=== PATIENT | female | born 2000 | race Caucasian/White ===

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

== ENCOUNTER 2020-09-24 22:04 | Inpatient (IN) | payer MEDICAID ==
--- NOTE | 2020-09-24 22:54 | PCM.LDHP ---
L&D History of Present Illness - General Date of Service: 09/24/20 Admit Problem/Dx: Admission Diagnosis/Problem Admission Diagnosis/Problem 09/24/20 22:48 Jenny is a 19 yo at 39+6 weeks gestation (KERLINE(LMP) 09/25/2020) that presents today with C/O contractions today ~ q 6-10 min, moderate, getting increasingly difficult to manage. AB pos, Ab screen neg, RNI, GBS pos. NKDA, plan for ampicillin prophylaxis in labor. Reports ample movement. Denies C/O vaginal bleeding, LOF, or any other problems or concerns at this time. Pertinent hx includes: depression, anxiety, low back pain, early SAB (09/2019). Source of Information: Patient History Limitations: Reports: No Limitations - History of Present Illness Improves with: Reports: None Worsens with: Reports: None Associated Symptoms: Reports: N - Related Data Allergies/Adverse Reactions: Allergies Allergy/AdvReac Type Severity Reaction Status Date / Time No Known Allergies Allergy Verified 09/24/20 12:22 Home Medications: Home Meds Nitrofurantoin Monohyd/M-Cryst [Macrobid 100 mg Capsule] 100 mg PO BID 7 Days #14 capsule 01/08/19 [Rx] Sertraline [Zoloft] 1 tab PO DAILY 09/24/20 [History] Past Medical History HEENT History: Reports: None Cardiovascular History: Reports: None Respiratory History: Reports: None Gastrointestinal History: Reports: None Genitourinary History: Reports: Renal Calculus 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: , 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 : 2 Para: 0 LMP (Approximate): Musculoskeletal History: Reports: None Neurological History: Reports: None Psychiatric History: Reports: Anxiety, Depression Endocrine/Metabolic History: Reports: None Hematologic History: Reports: None Immunologic History: Reports: None Oncologic (Cancer) History: Reports: None Dermatologic History: Reports: None - Past Surgical History Head Surgeries/Procedures: Reports: None HEENT Surgical History: Reports: None Cardiovascular Surgical History: Reports: None Respiratory Surgical History: Reports: None GI Surgical History: Reports: None Female Surgical History: Reports: None Endocrine Surgical History: Reports: None Neurological Surgical History: Reports: None Musculoskeletal Surgical History: Reports: None Oncologic Surgical History: Reports: None Dermatological Surgical History: Reports: None Social & Family History - Family History Family Medical History: No Pertinent Family History - Tobacco Use Tobacco Use Status *Q: Never Tobacco User - Caffeine Use Caffeine Use: Reports: None - Alcohol Use Alcohol Use History: No - Recreational Drug Use Recreational Drug Use: No H&P Review of Systems - Review of Systems: Review Of Systems: Comprehensive ROS is negative, except as noted in HPI. General: Reports: No Symptoms HEENT: Reports: No Symptoms Pulmonary: Reports: No Symptoms Cardiovascular: Reports: No Symptoms Gastrointestinal: Reports: No Symptoms Genitourinary: Reports: No Symptoms Musculoskeletal: Reports: No Symptoms Skin: Reports: No Symptoms Psychiatric: Reports: No Symptoms Neurological: Reports: No Symptoms Hematologic/Lymphatic: Reports: No Symptoms Immunologic: Reports: No Symptoms L&D Exam - Exam Exam: See Below - Vital Signs Vital Signs: Hemodynamically stable, afebrile. See flowsheet. T 97.6. HR 96. BP 121/84 (91). - OB Specific Fundal Height In cm: 39 Contraction Duration (sec): Continue to adjust TOCO Contraction Frequency (min): Occasional Contraction Intensity: Mild to Moderate Movement: Active Heart Tones: Present Heart Tones per Min: 140 Heart Rate (FHR) Variability: Moderate (6-25 bmp) Presentation: Vertex (via SVE) - Exam General: Alert, Oriented, Cooperative HEENT: Conjunctiva Clear, Hearing Intact, Mucosa Moist & [place], PERRLA Neck: Supple, Trachea Midline Lungs: Clear to Auscultation, Normal Respiratory Effort Cardiovascular: Regular Rate, Regular Rhythm GI/Abdominal Exam: Normal Bowel Sounds, Soft, Non-Tender, No Organomegaly, No Distention Rectal Exam: Deferred Genitourinary: Normal external exam, Normal bimanual exam, Enlarged uterus (Gravid uterus) Back Exam: Normal Inspection, Full Range of Motion Extremities: Normal Inspection, Normal Range of Motion, Non-Tender, No Pedal Edema, Normal Capillary Refill Skin: Warm, Dry, Intact Neurological: Cranial Nerves Intact, Reflexes Equal Bilateral Psychiatric: Alert, Normal Affect, Normal Mood - Problem List (1) Uterine contractions SNOMED Code(s): 311328975 ICD Code: [id number] - Status: Acute Priority: High Current Visit: Yes (2) 39 weeks gestation of SNOMED Code(s): 33981969 ICD Code: Z3A.39 - 39 WEEKS GESTATION OF Status: Acute Priority: High Current Visit: Yes Problem List Initiated/Reviewed/Updated: Yes Assessment/Plan Comment:: Admit to labor and delivery for observation in anticipation of SVE. SVE 3-4/80-90/-2, membranes intact, vertex. Expectant management, plan to re-assess cervical dilation in 4 hours. Regular diet. Once reactive NST is achieved, may ambulate and intermittently monitor per orders. May receive epidural >/=5 cm. Once epidural analgesia is achieved, modify diet to clear liquids. See new orders. Dr. Salgado notified and agreeable with POC.
[2020-09-24] MEDS ORDERED: Ampicillin 2 GM in Sodium Chloride 0.9% 100 ML IV ONE (23:00)
[2020-09-24] MEDS ORDERED: Promethazine 25 MG/ML SDV IM PRN (23:33)
[2020-09-24] MEDS ORDERED: Water For Irrigation,Sterile 1,000 ML Container IRR PRN (23:33)
[2020-09-24] MEDS ORDERED: Tranexamic Acid 1,000 MG in Sodium Chloride 0.9% 100 ML IV PRN (23:33)
[2020-09-24] MEDS ORDERED: Lidocaine 1% 50 ML MDV INJECT PRN (23:33)
[2020-09-24] MEDS ORDERED: Carboprost Tromethamine 250 MCG/1 ML Amp IM PRN (23:33)
[2020-09-24] MEDS ORDERED: Butorphanol 1 MG/ML SDV IVPUSH PRN (23:33)
[2020-09-24] MEDS ORDERED: Sodium Chloride 0.9% 10 ML SDV IV PRN (23:33)
[2020-09-24] MEDS ORDERED: Sodium Chloride 0.9% 10 ML Syringe FLUSH PRN (23:33)
[2020-09-24] MEDS ORDERED: Methylergonovine 0.2 MG/1 ML Amp IM PRN (23:33)
[2020-09-24] MEDS ORDERED: Misoprostol 200 MCG Tab PO PRN (23:33)
[2020-09-24] MEDS ORDERED: Sodium Chloride 0.9% 2.5 ML Syringe FLUSH PRN (23:33)
[2020-09-24] MEDS ORDERED: Nalbuphine 10 MG/1 ML Vial IVPUSH PRN (23:33)
[2020-09-24] MEDS ORDERED: Oxytocin/0.9 % Sodium Chloride 30 UNIT/500 ML BAG IV SCH (23:45)
[2020-09-25] MEDS: Ampicillin 1 GM in Sodium Chloride 0.9% 50 ML IV SCH ×3 (04:20→19:28)
[2020-09-25] MEDS: Lactated Ringers 1,000 ML IV SCH ×3 (04:20→06:55)
[2020-09-25] MEDS ORDERED: Bupivicaine/fentaNYL/NS 250 ML ONE (06:10)
--- NOTE | 2020-09-25 06:48 | PCM.PREANE ---
Preanesthetic Assessment - Anesthesia/Transfusion/Family Hx Anesthesia History: No Prior Anesthesia Family History of Anesthesia Reaction: No - Review of Systems General: No Symptoms Pulmonary: No Symptoms Cardiovascular: No Symptoms Gastrointestinal: No Symptoms Neurological: No Symptoms Other: Reports: None - Physical Assessment Height: 1.68 m Weight: 72.575 kg ASA Class: 2 Mental Status: Alert & Oriented x3 Airway Class: Mallampati = 2 Dentition: Reports: Normal Dentition ROM/Head Extension: Full - Lab Values: Laboratory Last Values WBC 10.44 K/uL (4.0-11.0) 09/24/20 23:00 RBC 4.11 M/uL (4.30-5.90) L 09/24/20 23:00 Hgb 12.5 g/dL (12.0-16.0) 09/24/20 23:00 Hct 37.5 % (36.0-46.0) 09/24/20 23:00 MCV 91.2 fL (80.0-98.0) 09/24/20 23:00 MCH 30.4 pg (27.0-32.0) 09/24/20 23:00 MCHC 33.3 g/dL (31.0-37.0) 09/24/20 23:00 RDW Std Deviation 44.6 fl (28.0-62.0) 09/24/20 23:00 RDW Coeff of Aditya 14 % (11.0-15.0) 09/24/20 23:00 Plt Count 232 K/uL (150-400) 09/24/20 23:00 MPV 12.00 fL (7.40-12.00) 09/24/20 23:00 Nucleated RBC % 0.0 /100WBC 09/24/20 23:00 Nucleated RBCs # 0 K/uL 09/24/20 23:00 SARS-CoV-2 RNA (MARGIE) NEGATIVE (NEGATIVE) 09/24/20 23:00 Blood Type AB POSITIVE 09/24/20 23:00 Antibody Screen NEGATIVE 09/24/20 23:00 - Allergies Allergies/Adverse Reactions: Allergies Allergy/AdvReac Type Severity Reaction Status Date / Time No Known Allergies Allergy Verified 09/24/20 12:22 - Acknowledgements Anesthesia Type Planned: Epidural Pt an Appropriate Candidate for the Planned Anesthesia: Yes Alternatives and Risks of Anesthesia Discussed w Pt/Guardian: Yes Pt/Guardian Understands and Agrees with Anesthesia Plan: Yes PreAnesthesia Questionnaire - Past Health History Medical/Surgical History: Denies Medical/Surgical History HEENT History: Reports: None Cardiovascular History: Reports: None Respiratory History: Reports: None Gastrointestinal History: Reports: None Genitourinary History: Reports: Renal Calculus 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: , 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 Musculoskeletal History: Reports: None Neurological History: Reports: None Psychiatric History: Reports: Anxiety, Depression Endocrine/Metabolic History: Reports: None Hematologic History: Reports: None Immunologic History: Reports: None Oncologic (Cancer) History: Reports: None Dermatologic History: Reports: None - Past Surgical History Head Surgeries/Procedures: Reports: None HEENT Surgical History: Reports: None Cardiovascular Surgical History: Reports: None Respiratory Surgical History: Reports: None GI Surgical History: Reports: None Female Surgical History: Reports: None Endocrine Surgical History: Reports: None Neurological Surgical History: Reports: None Musculoskeletal Surgical History: Reports: None Oncologic Surgical History: Reports: None Dermatological Surgical History: Reports: None - SUBSTANCE USE Tobacco Use Status *Q: Never Tobacco User Recreational Drug Use History: No - HOME MEDS Home Medications: Home Meds Nitrofurantoin Monohyd/M-Cryst [Macrobid 100 mg Capsule] 100 mg PO BID 7 Days #14 capsule 01/08/19 [Rx] Sertraline [Zoloft] 1 tab PO DAILY 09/24/20 [History] - CURRENT (IN HOUSE) MEDS Current Meds: Current Medications Butorphanol Tartrate (Butorphanol 1 Mg/Ml Sdv) 1 mg IVPUSH Q1H PRN PRN Reason: Pain Last Admin: 09/25/20 02:44 Dose: 1 mg Documented by: Carboprost Tromethamine (Carboprost Tromethamine 250 Mcg/1 Ml Amp) 250 mcg IM ASDIRECTED PRN PRN Reason: Post Hemorrhage Oxytocin/Sodium Chloride (Oxytocin 30 Unit/500 Ml-Ns) 30 unit in 500 mls @ 999 mls/hr IV TITRATE GALLO Tranexamic Acid 1,000 mg/ (Sodium Chloride) 110 mls @ 660 mls/hr IV ONETIME PRN PRN Reason: Bleeding Lactated Ringer's (Ringers, Lactated) 1,000 mls @ 150 mls/hr IV ASDIRECTED GALLO Last Admin: 09/25/20 04:20 Dose: 150 mls/hr Documented by: Ampicillin Sodium 1 gm/ Sodium (Chloride) 50 mls @ 100 mls/hr IV Q4H GALLO Last Admin: 09/25/20 04:20 Dose: 100 mls/hr Documented by: Lidocaine HCl (Lidocaine 1% 50 Ml Mdv) 50 ml INJECT ONETIME PRN PRN Reason: Laceration repair Methylergonovine Maleate (Methylergonovine 0.2 Mg/1 Ml Amp) 0.2 mg IM ASDIRECTED PRN PRN Reason: Post Hemorrhage Misoprostol (Misoprostol 200 Mcg Tab) 200 mcg PO ONETIME PRN PRN Reason: Post Hemorrhage Nalbuphine HCl (Nalbuphine 10 Mg/1 Ml Vial) 10 mg IVPUSH Q1H PRN PRN Reason: Pain (severe 7-10) Promethazine HCl (Promethazine 25 Mg/Ml Sdv) 25 mg IM Q4H PRN PRN Reason: Nausea/Vomiting Last Admin: 09/25/20 02:05 Dose: 25 mg Documented by: Sodium Chloride (Sodium Chloride 0.9% 10 Ml Syringe) 10 ml FLUSH ASDIRECTED PRN PRN Reason: Keep Vein Open Sodium Chloride (Sodium Chloride 0.9% 2.5 Ml Syringe) 2.5 ml FLUSH ASDIRECTED PRN PRN Reason: Keep Vein Open Sodium Chloride (Sodium Chloride 0.9% 10 Ml Sdv) 10 ml IV ASDIRECTED PRN PRN Reason: IV Use Sterile Water (Water For Irrigation,Sterile 1,000 Ml Container) 1,000 ml IRR ASDIRECTED PRN PRN Reason: delivery Discontinued Medications Ampicillin Sodium 2 gm/ Sodium (Chloride) 100 mls @ 200 mls/hr IV ONETIME ONE Stop: 09/24/20 23:29 Last Admin: 09/25/20 00:00 Dose: 200 mls/hr Documented by: Fentanyl/Bupivacaine HCl (Fentanyl/Bupivacaine/Ns 2 Mcg-0.125% 250 Ml) Confirm Administered Dose 250 mls @ as directed .ROUTE .STK-MED ONE Stop: 09/25/20 06:11
[2020-09-25] MEDS ORDERED: Sodium Chloride 0.9% 50 ML ONE (09:24)
[2020-09-25] MEDS ORDERED: Ampicillin 1 GM Vial ONE (09:24)
--- NOTE | 2020-09-25 12:26 | PCM.DEL ---
L & D Note - General Info Date of Service: 09/25/20 Mother's Due Date: 09/25/20 - Delivery Note Labor: Spontaneous, Augmented by ARM Delivery Outcome: Livebirth Delivery Method: Spontaneous Vaginal Delivery-Single Delivery Mode: Spontaneous Presentation: Left Occiput Anterior (MELISSA) Nuchal Cord: None Anesthesia Type: Epidural Amniotic Fluid Description: Meconium Stained Episiotomy Type: None Laceration: 3rd Degree (Repaired by Dr. Salgado at bedside, hemostatic and approximated.) Suture type: Vicryl Suture size: 3-0 Placenta: Intact, Spontaneous Cord: 3 Vessels Resuscitation Needed: No : Bulb Syringe, Stimulated, Warmed, [place] Used Score 1 min: 8 Score 5 min: 9 Second Stage Interventions: Reports: Encouragement Given, Pushing Effectively, Pushing, Stirrups/Leg Supports Delivery Comments (Free Text/Narrative):: Jenny is a 19 yo S/P of term viable NBM at 40+0 weeks gestation (KERLINE(LMP) 09/25/2020) after onset of spontaneous labor. AB pos, Ab screen neg, RNI, GBS pos. NKDA, adequate ampicillin prophylaxis in labor. Adequate BLE epidural in place. Pertinent hx includes: depression, anxiety, low back pain, early SAB (09/2019). AROM, clear fluid <3 hrs ago. head delivered MELISSA with thin meconium fluid noted at that time, with delivery of body with the next two pushes <20 seconds later, supine position. Terminal meconium also noted. NBM placed to maternal abdomen, warmed, dried, stimulated with strong spontaneous cries. Umbilical cord left intact for ~2 min, clamped x 2, cut by FOB. Pitocin bolus commenced, gentle cord traction applied for active third stage management. Dr. Salgado at beside. Placenta birthed ~8-10 min S/P NBM, intact, [place], 3VC with trailing membranes extracted with ring forceps by Dr. Salgado. Perineum inspected, 3rd degree perineal laceration noted, repaired with 3.[address] Salgado. Uterus firm to massage @U. Moderate vaginal bleeding noted, no clots. EBL 550 ml. APGARS 8/9. weight 8 lb 10 oz. - General Info Date of Service: 09/25/20 Admission Dx/Problem (Free Text): Admission Diagnosis/Problem Admission Diagnosis/Problem 09/24/20 22:48 Jenny is a 19 yo at 39+6 weeks gestation (KERLINE(LMP) 09/25/2020) that presents today with C/O contractions today ~ q 6-10 min, moderate, getting increasingly difficult to manage. AB pos, Ab screen neg, RNI, GBS pos. NKDA, plan for ampicillin prophylaxis in labor. Reports ample movement. Denies C/O vaginal bleeding, LOF, or any other problems or concerns at this time. Pertinent hx includes: depression, anxiety, low back pain, early SAB (09/2019). Functional Status: Reports: Pain Controlled - Review of Systems General: Reports: No Symptoms HEENT: Reports: No Symptoms Pulmonary: Reports: No Symptoms Cardiovascular: Reports: No Symptoms Gastrointestinal: Reports: No Symptoms Genitourinary: Reports: No Symptoms Musculoskeletal: Reports: No Symptoms Skin: Reports: No Symptoms Neurological: Reports: No Symptoms Psychiatric: Reports: No Symptoms - Patient Data Vitals - Most Recent: VSS, afebrile. See flowsheet. Weight - Most Recent: 160 lb Lab Results Last 24 Hours: Laboratory Results - last 24 hr 09/24/20 09/24/20 09/24/20 Range/Units 23:00 23:00 23:00 WBC 10.44 (4.0-11.0) K/uL RBC 4.11 L (4.30-5.90) M/uL Hgb 12.5 (12.0-16.0) g/dL Hct 37.5 (36.0-46.0) % MCV 91.2 (80.0-98.0) fL MCH 30.4 (27.0-32.0) pg MCHC 33.3 (31.0-37.0) g/dL RDW Std Deviation 44.6 (28.0-62.0) fl RDW Coeff of Aditya 14 (11.0-15.0) % Plt Count 232 (150-400) K/uL MPV 12.00 (7.40-12.00) fL Nucleated RBC % 0.0 /100WBC Nucleated RBCs # 0 K/uL SARS-CoV-2 RNA (MARGIE) NEGATIVE (NEGATIVE) Blood Type AB POSITIVE Antibody Screen NEGATIVE Med Orders - Current: Current Medications Butorphanol Tartrate (Butorphanol 1 Mg/Ml Sdv) 1 mg IVPUSH Q1H PRN PRN Reason: Pain Last Admin: 09/25/20 02:44 Dose: 1 mg Documented by: Carboprost Tromethamine (Carboprost Tromethamine 250 Mcg/1 Ml Amp) 250 mcg IM ASDIRECTED PRN PRN Reason: Post Hemorrhage Oxytocin/Sodium Chloride (Oxytocin 30 Unit/500 Ml-Ns) 30 unit in 500 mls @ 999 mls/hr IV TITRATE [facility] Last Admin: 09/25/20 11:57 Dose: 500 mls/hr Documented by: Tranexamic Acid 1,000 mg/ (Sodium Chloride) 110 mls @ 660 mls/hr IV ONETIME PRN PRN Reason: Bleeding Lactated Ringer's (Ringers, Lactated) 1,000 mls @ 150 mls/hr IV ASDIRECTED [facility] Last Admin: 09/25/20 06:55 Dose: 150 mls/hr Documented by: Ampicillin Sodium 1 gm/ Sodium (Chloride) 50 mls @ 100 mls/hr IV Q4H [facility] Last Admin: 09/25/20 09:29 Dose: 100 mls/hr Documented by: Lidocaine HCl (Lidocaine 1% 50 Ml Mdv) 50 ml INJECT ONETIME PRN PRN Reason: Laceration repair Last Admin: 09/25/20 12:12 Dose: 50 ml Documented by: Methylergonovine Maleate (Methylergonovine 0.2 Mg/1 Ml Amp) 0.2 mg IM ASDIRECTED PRN PRN Reason: Post Hemorrhage Misoprostol (Misoprostol 200 Mcg Tab) 200 mcg PO ONETIME PRN PRN Reason: Post Hemorrhage Nalbuphine HCl (Nalbuphine 10 Mg/1 Ml Vial) 10 mg IVPUSH Q1H PRN PRN Reason: Pain (severe 7-10) Promethazine HCl (Promethazine 25 Mg/Ml Sdv) 25 mg IM Q4H PRN PRN Reason: Nausea/Vomiting Last Admin: 09/25/20 02:05 Dose: 25 mg Documented by: Sodium Chloride (Sodium Chloride 0.9% 10 Ml Syringe) 10 ml FLUSH ASDIRECTED PRN PRN Reason: Keep Vein Open Sodium Chloride (Sodium Chloride 0.9% 2.5 Ml Syringe) 2.5 ml FLUSH ASDIRECTED PRN PRN Reason: Keep Vein Open Sodium Chloride (Sodium Chloride 0.9% 10 Ml Sdv) 10 ml IV ASDIRECTED PRN PRN Reason: IV Use Sterile Water (Water For Irrigation,Sterile 1,000 Ml Container) 1,000 ml IRR ASDIRECTED PRN PRN Reason: delivery Discontinued Medications Ampicillin Sodium (Ampicillin 1 Gm Vial) Confirm Administered Dose 1 gm .ROUTE .STK-MED ONE Stop: 09/25/20 09:25 Ampicillin Sodium 2 gm/ Sodium (Chloride) 100 mls @ 200 mls/hr IV ONETIME ONE Stop: 09/24/20 23:29 Last Admin: 09/25/20 00:00 Dose: 200 mls/hr Documented by: Fentanyl/Bupivacaine HCl (Fentanyl/Bupivacaine/Ns 2 Mcg-0.125% 250 Ml) Confirm Administered Dose 250 mls @ as directed .ROUTE .STK-MED ONE Stop: 09/25/20 06:11 Sodium Chloride (Normal Saline) Confirm Administered Dose 50 mls @ as directed .ROUTE .STK-MED ONE Stop: 09/25/20 09:25 - Exam General: Alert, Oriented, Cooperative, No Acute Distress HEENT: Pupils Equal, Mucous Membr. Moist/[place] Neck: Supple Lungs: Clear to Auscultation, Normal Respiratory Effort Cardiovascular: Regular Rate, Regular Rhythm GI/Abdominal Exam: Normal Bowel Sounds, Soft, Non-Tender, No Organomegaly, No Distention (Female) Exam: Normal External Exam, Enlarged Uterus ( uterus, firm to massage @U), Vaginal Bleeding (Moderate vaginal bleeding.) Back Exam: Normal Inspection, Full Range of Motion Extremities: Normal Inspection, Normal Range of Motion, Non-Tender, No Pedal Edema, Normal Capillary Refill Skin: Warm, Dry, Intact Wound/Incisions: No Drainage Neurological: No New Focal Deficit (BLE epidural in place.) Psy/Mental Status: Alert, Normal Affect, Normal Mood - Problem List & Annotations (1) (spontaneous vaginal delivery) SNOMED Code(s): 304969556 Code(s): O80 - ENCOUNTER FOR FULL-TERM UNCOMPLICATED DELIVERY Status: Acute Priority: High Current Visit: Yes (2) Lactating mother SNOMED Code(s): 857329709, 014748037 Code(s): Z39.1 - ENCOUNTER FOR CARE AND EXAMINATION OF LACTATING MOTHER Status: Acute Priority: High Current Visit: Yes - Problem List Review Problem List Initiated/Reviewed/Updated: Yes - Plan Plan:: Admit inpatient to unit S/P of term, viable NBM. Regular diet as tolerated. Plan to D/C epidural now, may ambulate with assistance in 2-4 hours or when sensation returns. If patient does not void within 6 hours S/P delivery, notify provider. support may be provided if desired or needed. H/H in am. See new orders. Dr. Salgado notified and agreeable with POC.
[2020-09-25] MEDS ORDERED: Bisacodyl 10 MG Supp RECTAL PRN (12:39)
[2020-09-25] MEDS ORDERED: Witch Hazel Medicated Pads 40/Jar TOP PRN (12:39)
[2020-09-25] MEDS ORDERED: Benzocaine/Menthol 20%-0.5% Spray 78 GM Cannister TOP PRN (12:39)
[2020-09-25] MEDS ORDERED: Acetaminophen 500 MG Tab PO PRN ×2 (12:39)
[2020-09-25] MEDS ORDERED: Ibuprofen 400 MG Tab PO PRN (12:39)
[2020-09-25] MEDS ORDERED: Lanolin 100% Cream 7 GM Tube TOP PRN (12:39)
[2020-09-25] MEDS ORDERED: oxyCODONE 5 MG Tab PO PRN (12:39)
--- NOTE | 2020-09-25 17:56 | PCM48HPAN ---
Post Anesthesia Note - EVALUATION WITHIN 48HRS OF ANESTHETIC Vital Signs in Normal Range: Yes Patient Participated in Evaluation: Yes Respiratory Function Stable: Yes Airway Patent: Yes Cardiovascular Function Stable: Yes Hydration Status Stable: Yes Pain Control Satisfactory: Yes Nausea and Vomiting Control Satisfactory: Yes Mental Status Recovered: Yes - COMMENTS/OBSERVATIONS Free Text/Narrative:: full sensation in legs bilaterally, up walking
[2020-09-26] MEDS: Docusate Sodium 100 MG Cap PO PRN (00:44)
--- NOTE | 2020-09-26 06:59 | PCM48HPAN ---
Post Anesthesia Note - EVALUATION WITHIN 48HRS OF ANESTHETIC Vital Signs in Normal Range: Yes Patient Participated in Evaluation: Yes Respiratory Function Stable: Yes Airway Patent: Yes Cardiovascular Function Stable: Yes Hydration Status Stable: Yes Pain Control Satisfactory: Yes Nausea and Vomiting Control Satisfactory: Yes Mental Status Recovered: Yes Vital Signs: Last Vital Signs Temp 36.0 C L 09/26/20 04:10 Pulse 101 H 09/26/20 04:10 Resp 17 09/26/20 04:10 BP 143/89 H 09/26/20 04:10 Pulse Ox 96 09/26/20 04:10
[2020-09-26] MEDS ORDERED: Hydrocortisone 2.5% Crm 30 GM Tube TOP PRN (10:00)
[2020-09-26] MEDS ORDERED: Measles, Mumps & Rubella Vaccine 0.5 ML SDV SUBCUT ONE (12:39)
[2020-09-26] MEDS: Ibuprofen 800 MG Tab PO PRN (16:36)
--- NOTE | 2020-09-26 17:57 | PCM.PNPP ---
- General Info Date of Service: 09/26/20 Admission Dx/Problem (Free Text): Admission Diagnosis/Problem Admission Diagnosis/Problem 09/24/20 22:48 Jenny is a 19 yo PPD 1 s/p to term, viable NBM at 40+0 weeks gestation (KERLINE(LMP) 09/25/2020) following onset of spontaneous labor. AB pos, Ab screen neg, RNI, GBS pos with adequate ampicillin prophylaxis in labor. Patient has no complaints or concerns at this time. Patient is exclusively oneil astfeeding well, resting comfortably in bed with in nursery. Patient reports she is eating, voiding, ambulating independently and without difficulty. Patient denies any problems or concerns at this time except moderate perineal pain (3rd degree laceration with repair, hemostatic) and mild-moderate intermittent uterine cramping somewhat relieved with Ibuprofen. Patient reports small vaginal bleeding with no clots. Functional Status: Reports: Pain Controlled, Tolerating Diet, Ambulating, Urinating - Review of Systems General: Reports: No Symptoms HEENT: Reports: No Symptoms Pulmonary: Reports: No Symptoms Cardiovascular: Reports: No Symptoms Gastrointestinal: Reports: No Symptoms Genitourinary: Reports: No Symptoms Musculoskeletal: Reports: No Symptoms Skin: Reports: No Symptoms Neurological: Reports: No Symptoms Psychiatric: Reports: No Symptoms - General Info Date of Service: 09/26/20 - Patient Data Vital Signs - Most Recent: Last Vital Signs Temp 98.1 F 09/26/20 16:30 Pulse 103 H 09/26/20 16:30 Resp 17 09/26/20 16:30 BP 116/76 09/26/20 16:30 Pulse Ox 96 09/26/20 16:30 Weight - Most Recent: 160 lb Lab Results - Last 24 Hours: Laboratory Results - last 24 hr 09/24/20 09/26/20 Range/Units 23:00 05:30 Hgb 9.7 L (12.0-16.0) g/dL Hct 29.7 L (36.0-46.0) % RPR Non-Reac (Non-Reac) Med Orders - Current: Current Medications Acetaminophen (Acetaminophen 500 Mg Tab) 500 mg PO Q4H PRN PRN Reason: Pain Acetaminophen (Acetaminophen 500 Mg Tab) 1,000 mg PO Q4H PRN PRN Reason: Pain Benzocaine/Menthol (Benzocaine/Menthol 20%-0.5% Ada 78 Gm Cannister) 78 gm TOP ASDIRECTED PRN PRN Reason: Perineal Comfort Measure Last Admin: 09/25/20 17:41 Dose: 1 can Documented by: Bisacodyl (Bisacodyl 10 Mg Supp) 10 mg RECTAL ONETIME PRN PRN Reason: Constipation Docusate Sodium (Docusate Sodium 100 Mg Cap) 100 mg PO BID PRN PRN Reason: Constipation Last Admin: 09/26/20 00:44 Dose: 100 mg Documented by: Emollient Ointment (Lanolin 100% Cream 7 Gm Tube) 0 gm TOP ASDIRECTED PRN PRN Reason: Sore Nipples Last Admin: 09/25/20 17:42 Dose: 7 gm Documented by: Hydrocortisone (Hydrocortisone 2.5% Crm 30 Gm Tube) 1 gm TOP ASDIRECTED PRN PRN Reason: Hemorrhoids Last Admin: 09/26/20 11:43 Dose: 1 gm Documented by: Ibuprofen (Ibuprofen 400 Mg Tab) 400 mg PO Q4H PRN PRN Reason: Pain Ibuprofen (Ibuprofen 800 Mg Tab) 800 mg PO Q6H PRN PRN Reason: Pain Last Admin: 09/26/20 16:36 Dose: 800 mg Documented by: Measles/Mumps/Rubella Vaccine Live (Measles, Mumps & Rubella Vaccine 0.5 Ml Sdv) 0.5 ml SUBCUT .ONCE ONE Stop: 09/27/20 12:40 Oxycodone HCl (Oxycodone 5 Mg Tab) 5 mg PO Q2H PRN PRN Reason: Pain Witch Latricia (Witch Latricia Medicated Pads 40/Jar) 1 pad TOP ASDIRECTED PRN PRN Reason: comfort care Last Admin: 09/25/20 17:41 Dose: 1 container Documented by: Discontinued Medications Ampicillin Sodium (Ampicillin 1 Gm Vial) Confirm Administered Dose 1 gm .ROUTE .STK-MED ONE Stop: 09/25/20 09:25 Last Admin: 09/25/20 19:27 Dose: Not Given Documented by: Butorphanol Tartrate (Butorphanol 1 Mg/Ml Sdv) 1 mg IVPUSH Q1H PRN PRN Reason: Pain Last Admin: 09/25/20 02:44 Dose: 1 mg Documented by: Carboprost Tromethamine (Carboprost Tromethamine 250 Mcg/1 Ml Amp) 250 mcg IM ASDIRECTED PRN PRN Reason: Post Hemorrhage Oxytocin/Sodium Chloride (Oxytocin 30 Unit/500 Ml-Ns) 30 unit in 500 mls @ 999 mls/hr IV TITRATE [facility] Last Admin: 09/25/20 11:57 Dose: 500 mls/hr Documented by: Tranexamic Acid 1,000 mg/ (Sodium Chloride) 110 mls @ 660 mls/hr IV ONETIME PRN PRN Reason: Bleeding Ampicillin Sodium 2 gm/ Sodium (Chloride) 100 mls @ 200 mls/hr IV ONETIME ONE Stop: 09/24/20 23:29 Last Admin: 09/25/20 00:00 Dose: 200 mls/hr Documented by: Lactated Ringer's (Ringers, Lactated) 1,000 mls @ 150 mls/hr IV ASDIRECTED [facility] Last Admin: 09/25/20 06:55 Dose: 150 mls/hr Documented by: Ampicillin Sodium 1 gm/ Sodium (Chloride) 50 mls @ 100 mls/hr IV Q4H [facility] Last Admin: 09/25/20 19:28 Dose: Not Given Documented by: Fentanyl/Bupivacaine HCl (Fentanyl/Bupivacaine/Ns 2 Mcg-0.125% 250 Ml) Confirm Administered Dose 250 mls @ as directed .ROUTE .STK-MED ONE Stop: 09/25/20 06:11 Last Admin: 09/25/20 19:27 Dose: Not Given Documented by: Sodium Chloride (Normal Saline) Confirm Administered Dose 50 mls @ as directed .ROUTE .STK-MED ONE Stop: 09/25/20 09:25 Last Admin: 09/25/20 19:27 Dose: Not Given Documented by: Lidocaine HCl (Lidocaine 1% 50 Ml Mdv) 50 ml INJECT ONETIME PRN PRN Reason: Laceration repair Last Admin: 09/25/20 12:12 Dose: 50 ml Documented by: Measles/Mumps/Rubella Vaccine Live (Measles, Mumps & Rubella Vaccine 0.5 Ml Sdv) 0.5 ml SUBCUT .ONCE ONE Stop: 09/26/20 12:40 Methylergonovine Maleate (Methylergonovine 0.2 Mg/1 Ml Amp) 0.2 mg IM ASDIRECTED PRN PRN Reason: Post Hemorrhage Misoprostol (Misoprostol 200 Mcg Tab) 200 mcg PO ONETIME PRN PRN Reason: Post Hemorrhage Nalbuphine HCl (Nalbuphine 10 Mg/1 Ml Vial) 10 mg IVPUSH Q1H PRN PRN Reason: Pain (severe 7-10) Promethazine HCl (Promethazine 25 Mg/Ml Sdv) 25 mg IM Q4H PRN PRN Reason: Nausea/Vomiting Last Admin: 09/25/20 02:05 Dose: 25 mg Documented by: Sodium Chloride (Sodium Chloride 0.9% 10 Ml Syringe) 10 ml FLUSH ASDIRECTED PRN PRN Reason: Keep Vein Open Sodium Chloride (Sodium Chloride 0.9% 2.5 Ml Syringe) 2.5 ml FLUSH ASDIRECTED PRN PRN Reason: Keep Vein Open Sodium Chloride (Sodium Chloride 0.9% 10 Ml Sdv) 10 ml IV ASDIRECTED PRN PRN Reason: IV Use Sterile Water (Water For Irrigation,Sterile 1,000 Ml Container) 1,000 ml IRR ASDIRECTED PRN PRN Reason: delivery - Interaction Disposition, : [place] to Nursery Interaction: Not Interacting Feeding: Attempted ; Nursed Fair/Poor, Continues to Breastfeed, Encouraged to Breastfeed Support Person: - Recovery Exam Fundal Tone: Firm Fundal Level: 1 Fingerbreadths Below Umbilicus Fundal Placement: Midline Lochia Amount: Scant Lochia Color: Rubra/Red Perineum Description: Edematous, Hemorrhoids, Other (see below) Other Perinuem Description: 3rd degree laceration with repair. Episiotomy/Laceration: Approximated Bladder Status: Voiding Urinary Elimination: Voided - Exam General: Alert, Oriented, Cooperative, No Acute Distress HEENT: Pupils Equal, Mucous Membr. Moist/[place] Neck: Supple Lungs: Clear to Auscultation, Normal Respiratory Effort Cardiovascular: Regular Rate, Regular Rhythm GI/Abdominal Exam: Normal Bowel Sounds, Soft, Non-Tender, No Organomegaly, No Distention Extremities: Normal Inspection, Normal Range of Motion, Non-Tender, No Pedal Edema, Normal Capillary Refill Skin: Warm, Dry, Intact Wound/Incisions: No Drainage (Approximated.) Neurological: No New Focal Deficit Psy/Mental Status: Alert, Normal Affect, Normal Mood - Problem List & Annotations (1) (spontaneous vaginal delivery) SNOMED Code(s): 331654126 Code(s): O80 - ENCOUNTER FOR FULL-TERM UNCOMPLICATED DELIVERY Status: Acute Priority: High Current Visit: Yes (2) Lactating mother SNOMED Code(s): 033392883, 599173533 Code(s): Z39.1 - ENCOUNTER FOR CARE AND EXAMINATION OF LACTATING MOTHER Status: Acute Priority: High Current Visit: Yes - Problem List Review Problem List Initiated/Reviewed/Updated: Yes - My Orders Last 24 Hours: My Active Orders 09/26/20 10:00 Hydrocortisone [Proctozone-HC 2.5% Crm] 1 gm TOP ASDIRECTED PRN 09/27/20 12:39 Measles, Mumps & Rubella [M-M-R II Vaccine] 0.5 ml SUBCUT .ONCE ONE - Plan Plan:: Plan to continue inpatient course. Hemodynamically stable, afebrile. Hemoglobin 9.7, start 1 tablet 150 mg iron supplementation daily, F/U as indicated. Continue PO analgesia as ordered. Continue EBFing, eating, voiding, ambulating independently. Plan to D/C in am. Dr. Salgado notified and agreeable with POC.
[2020-09-27] MEDS: Ibuprofen 800 MG Tab PO PRN ×2 (00:27→09:54)
--- NOTE | 2020-09-27 07:21 | PCM.DCSUM1 ---
Discharge Summary - Hospital Course Free Text/Narrative:: Jenny is a 19 yo PPD 2 s/p to term, viable NBM at 40+0 weeks gestation (KERLINE(LMP) 09/25/2020) following onset of spontaneous labor; 3rd degree perineal laceration repaired by marleny Morrow. AB pos, Ab screen neg, RNI, GBS pos with adequate ampicillin prophylaxis in labor. Patient has no complaints or concerns at this time. Patient is exclusively fairly well, difficulty with latch left breast, resting comfortably in bed with in arms. Patient reports she is eating, voiding, ambulating independently and without difficulty. Patient denies any problems or concerns at this time except moderate perineal pain and mild-moderate intermittent uterine cramping somewhat relieved with Ibuprofen. Patient reports small vaginal bleeding with no clots. anemia noted, currently prescribed iron supplementation. Diagnosis: Stroke: No - Discharge Data Discharge Date: 09/27/20 Discharge Disposition: Home, Self-Care 01 Condition: Good - Referral to Home Health Primary Care Physician: PCP None - Discharge Diagnosis/Problem(s) (1) (spontaneous vaginal delivery) SNOMED Code(s): 913483160 ICD Code: O80 - ENCOUNTER FOR FULL-TERM UNCOMPLICATED DELIVERY Status: Acute Priority: High Current Visit: Yes (2) Lactating mother SNOMED Code(s): 198443312, 347803732 ICD Code: Z39.1 - ENCOUNTER FOR CARE AND EXAMINATION OF LACTATING MOTHER Status: Acute Priority: High Current Visit: Yes - Patient Instructions Diet: Usual Diet as Tolerated, Regular Diet as Tolerated, Drink 8-10+ Gl asses/Day Activity: As Tolerated, No Strenuous Activities, Rest and Relax Today Driving: May Drive Today Showering/Bathing: May Shower Showering/Bathing, Other: May sitz bath for perineal comfort. Notify Provider of: Fever, Increased Pain, Swelling and Redness, Drainage, Rhys sea and/or Vomiting - Discharge Plan *PRESCRIPTION DRUG MONITORING PROGRAM REVIEWED*: No *COPY OF PRESCRIPTION DRUG MONITORING REPORT IN PATIENT ALEKSANDRA: No Prescriptions/Med Rec: Docusate Sodium [Colace] 100 mg PO BID PRN #60 cap PRN Reason: Constipation Iron Polysaccharides Complex [Ferrex 150] 150 mg PO DAILY #30 cap Ibuprofen [Motrin] 800 mg PO Q8H PRN #90 tablet PRN Reason: Pain Home Medications: Home Meds Sertraline [Zoloft] 1 tab PO DAILY 09/24/20 [History] Docusate Sodium [Colace] 100 mg PO BID PRN #60 cap 09/27/20 [Rx] Ibuprofen [Motrin] 800 mg PO Q8H PRN #90 tablet 09/27/20 [Rx] Iron Polysaccharides Complex [Ferrex 150] 150 mg PO DAILY #30 cap 09/27/20 [Rx] Oxygen Therapy Mode: Room Air Referrals: Therese Coffey [Ordering Only Provider] - 10/31/20 1:30 pm Kev Salgado MD [Physician] - - Discharge Summary/Plan Comment DC Time >30 min.: Yes Discharge Summary/Plan Comment: Plan to d/c home today. Warning S/Ss, when to call for help discussed. RTO in 6 weeks for visit or sooner if problems arise. - General Info Date of Service: 09/27/20 Admission Dx/Problem (Free Text: Admission Diagnosis/Problem Admission Diagnosis/Problem 09/24/20 22:48 Jenny is a 19 yo PPD 1 s/p to term, viable NBM at 40+0 weeks gestation (KERLINE(LMP) 09/25/2020) following onset of spontaneous labor. AB pos, Ab screen neg, RNI, GBS pos with adequate ampicillin prophylaxis in labor. Patient has no complaints or concerns at this time. Patient is exclusively well, resting comfortably in bed with in nursery. Patient reports she is eating, voiding, ambulating independently and without difficulty. Patient denies any problems or concerns at this time except moderate perineal pain (3rd degree laceration with repair, hemostatic) and mild- moderate intermittent uterine cramping somewhat relieved with Ibuprofen. Patient reports small vaginal bleeding with no clots. Functional Status: Reports: Pain Controlled, Tolerating Diet, Ambulating, Urinating - Review of Systems General: Reports: No Symptoms HEENT: Reports: No Symptoms Pulmonary: Reports: No Symptoms Cardiovascular: Reports: No Symptoms Gastrointestinal: Reports: No Symptoms Genitourinary: Reports: No Symptoms Musculoskeletal: Reports: No Symptoms Skin: Reports: No Symptoms Neurological: Reports: No Symptoms Psychiatric: Reports: No Symptoms - Patient Data Vitals - Most Recent: Last Vital Signs Temp 96.9 F 09/27/20 05:18 Pulse 77 09/27/20 05:18 Resp 16 09/27/20 05:18 BP 126/77 09/27/20 05:18 Pulse Ox 95 09/27/20 05:18 Weight - Most Recent: 160 lb Lab Results - Last 24 hrs: Laboratory Results - last 24 hr 09/24/20 Range/Units 23:00 RPR Non-Reac (Non-Reac) Med Orders - Current: Current Medications Acetaminophen (Acetaminophen 500 Mg Tab) 500 mg PO Q4H PRN PRN Reason: Pain Acetaminophen (Acetaminophen 500 Mg Tab) 1,000 mg PO Q4H PRN PRN Reason: Pain Benzocaine/Menthol (Benzocaine/Menthol 20%-0.5% [place] 78 Gm Cannister) 78 gm TOP ASDIRECTED PRN PRN Reason: Perineal Comfort Measure Last Admin: 09/25/20 17:41 Dose: 1 can Documented by: Bisacodyl (Bisacodyl 10 Mg Supp) 10 mg RECTAL ONETIME PRN PRN Reason: Constipation Docusate Sodium (Docusate Sodium 100 Mg Cap) 100 mg PO BID PRN PRN Reason: Constipation Last Admin: 09/26/20 00:44 Dose: 100 mg Documented by: Emollient Ointment (Lanolin 100% Cream 7 Gm Tube) 0 gm TOP ASDIRECTED PRN PRN Reason: Sore Nipples Last Admin: 09/25/20 17:42 Dose: 7 gm Documented by: Hydrocortisone (Hydrocortisone 2.5% Crm 30 Gm Tube) 1 gm TOP ASDIRECTED PRN PRN Reason: Hemorrhoids Last Admin: 09/26/20 11:43 Dose: 1 gm Documented by: Ibuprofen (Ibuprofen 400 Mg Tab) 400 mg PO Q4H PRN PRN Reason: Pain Ibuprofen (Ibuprofen 800 Mg Tab) 800 mg PO Q6H PRN PRN Reason: Pain Last Admin: 09/27/20 00:27 Dose: 800 mg Documented by: Measles/Mumps/Rubella Vaccine Live (Measles, Mumps & Rubella Vaccine 0.5 Ml Sdv) 0.5 ml SUBCUT .ONCE ONE Stop: 09/27/20 12:40 Oxycodone HCl (Oxycodone 5 Mg Tab) 5 mg PO Q2H PRN PRN Reason: Pain Polysaccharide Iron Complex (Iron Polysaccharides Complex 150 Mg Cap) 150 mg PO DAILY [facility] Witch Latricia (Witch Latricia Medicated Pads 40/Jar) 1 pad TOP ASDIRECTED PRN PRN Reason: comfort care Last Admin: 09/25/20 17:41 Dose: 1 container Documented by: Discontinued Medications Ampicillin Sodium (Ampicillin 1 Gm Vial) Confirm Administered Dose 1 gm .ROUTE .STK-MED ONE Stop: 09/25/20 09:25 Last Admin: 09/25/20 19:27 Dose: Not Given Documented by: Butorphanol Tartrate (Butorphanol 1 Mg/Ml Sdv) 1 mg IVPUSH Q1H PRN PRN Reason: Pain Last Admin: 09/25/20 02:44 Dose: 1 mg Documented by: Carboprost Tromethamine (Carboprost Tromethamine 250 Mcg/1 Ml Amp) 250 mcg IM ASDIRECTED PRN PRN Reason: Post Hemorrhage Oxytocin/Sodium Chloride (Oxytocin 30 Unit/500 Ml-Ns) 30 unit in 500 mls @ 999 mls/hr IV TITRATE [facility] Last Admin: 09/25/20 11:57 Dose: 500 mls/hr Documented by: Tranexamic Acid 1,000 mg/ (Sodium Chloride) 110 mls @ 660 mls/hr IV ONETIME PRN PRN Reason: Bleeding Ampicillin Sodium 2 gm/ Sodium (Chloride) 100 mls @ 200 mls/hr IV ONETIME ONE Stop: 09/24/20 23:29 Last Admin: 09/25/20 00:00 Dose: 200 mls/hr Documented by: Lactated Ringer's (Ringers, Lactated) 1,000 mls @ 150 mls/hr IV ASDIRECTED [facility] Last Admin: 09/25/20 06:55 Dose: 150 mls/hr Documented by: Ampicillin Sodium 1 gm/ Sodium (Chloride) 50 mls @ 100 mls/hr IV Q4H [facility] Last Admin: 09/25/20 19:28 Dose: Not Given Documented by: Fentanyl/Bupivacaine HCl (Fentanyl/Bupivacaine/Ns 2 Mcg-0.125% 250 Ml) Confirm Administered Dose 250 mls @ as directed .ROUTE .STK-MED ONE Stop: 09/25/20 06:11 Last Admin: 09/25/20 19:27 Dose: Not Given Documented by: Sodium Chloride (Normal Saline) Confirm Administered Dose 50 mls @ as directed .ROUTE .STK-MED ONE Stop: 09/25/20 09:25 Last Admin: 09/25/20 19:27 Dose: Not Given Documented by: Lidocaine HCl (Lidocaine 1% 50 Ml Mdv) 50 ml INJECT ONETIME PRN PRN Reason: Laceration repair Last Admin: 09/25/20 12:12 Dose: 50 ml Documented by: Measles/Mumps/Rubella Vaccine Live (Measles, Mumps & Rubella Vaccine 0.5 Ml Sdv) 0.5 ml SUBCUT .ONCE ONE Stop: 09/26/20 12:40 Methylergonovine Maleate (Methylergonovine 0.2 Mg/1 Ml Amp) 0.2 mg IM ASDIRECTED PRN PRN Reason: Post Hemorrhage Misoprostol (Misoprostol 200 Mcg Tab) 200 mcg PO ONETIME PRN PRN Reason: Post Hemorrhage Nalbuphine HCl (Nalbuphine 10 Mg/1 Ml Vial) 10 mg IVPUSH Q1H PRN PRN Reason: Pain (severe 7-10) Promethazine HCl (Promethazine 25 Mg/Ml Sdv) 25 mg IM Q4H PRN PRN Reason: Nausea/Vomiting Last Admin: 09/25/20 02:05 Dose: 25 mg Documented by: Sodium Chloride (Sodium Chloride 0.9% 10 Ml Syringe) 10 ml FLUSH ASDIRECTED PRN PRN Reason: Keep Vein Open Sodium Chloride (Sodium Chloride 0.9% 2.5 Ml Syringe) 2.5 ml FLUSH ASDIRECTED PRN PRN Reason: Keep Vein Open Sodium Chloride (Sodium Chloride 0.9% 10 Ml Sdv) 10 ml IV ASDIRECTED PRN PRN Reason: IV Use Sterile Water (Water For Irrigation,Sterile 1,000 Ml Container) 1,000 ml IRR ASDIRECTED PRN PRN Reason: delivery - Exam General: Reports: Alert, Oriented, Cooperative, No Acute Distress HEENT: Reports: Pupils Equal, Mucous Membr. Moist/[place] Neck: Reports: Supple Lungs: Reports: Clear to Auscultation, Normal Respiratory Effort Cardiovascular: Reports: Regular Rate, Regular Rhythm GI/Abdominal Exam: Normal Bowel Sounds, Soft, Non-Tender, No Organomegaly, No Distention (Female) Exam: Normal External Exam, Enlarged Uterus ( uterus, firm), Vaginal Bleeding (Rubra lochia wnl) Rectal (Female) Exam: Normal Exam, Normal Rectal Tone Back Exam: Reports: Normal Inspection, Full Range of Motion Extremities: Normal Inspection, Normal Range of Motion, Non-Tender, No Pedal Edema, Normal Capillary Refill Skin: Reports: Warm, Dry, Intact Wound/Incisions: Reports: No Drainage Neurological: Reports: No New Focal Deficit Psy/Mental Status: Reports: Alert, Normal Affect, Normal Mood
[2020-09-27] MEDS ORDERED: Iron Polysaccharides Complex 150 MG Cap PO SCH (09:00)
[2020-09-27] MEDS: Docusate Sodium 100 MG Cap PO PRN (09:54)
[2020-09-27] MEDS ORDERED: Measles, Mumps & Rubella Vaccine 0.5 ML SDV SUBCUT ONE (12:39)
== END 2020-09-27 16:00 | disposition home or self-care (01) | DRG 768 ==
LOC: MW.OBCHECK 22:04 → MW.OB 22:08 → MW.OBCHECK 23:33 → MW.OB 23:33 → OBSVTOIN 09-25 12:39 → MW.OB 09-25 18:06
PROVIDERS: ADMIT Obstetrics & Gynecology; ATTEND Obstetrics & Gynecology
PROC: 10E0XZZ Delivery of Products of Conception, External Approach (ICD-10-PCS; principal; 2020-09-25)
PROC: 0DQR0ZZ Repair Anal Sphincter, Open Approach (ICD-10-PCS; 2020-09-25)
PROC: 10907ZC Drainage of Amniotic Fluid, Therapeutic from Products of Conception, Via Natural or Artificial Opening (ICD-10-PCS; 2020-09-25)
PROC: 3E0R3BZ Introduction of Anesthetic Agent into Spinal Canal, Percutaneous Approach (ICD-10-PCS; 2020-09-25)
PROC: 00HU33Z Insertion of Infusion Device into Spinal Canal, Percutaneous Approach (ICD-10-PCS; 2020-09-25)
DX: O99.344 Other mental disorders complicating childbirth (principal); Z37.0 Single live birth; O70.20 Third degree perineal laceration during delivery, unspecified; F41.9 Anxiety disorder, unspecified; F32.9 Major depressive disorder, single episode, unspecified; O77.0 Labor and delivery complicated by meconium in amniotic fluid; O99.824 Streptococcus B carrier state complicating childbirth; Z20.822 Contact with and (suspected) exposure to COVID-19; Z3A.40 40 weeks gestation of pregnancy
CPT/HCPCS: 36415; 51701; 59025; 59409; 85014; 85018; 85027; 86592; 86850; 86900; 86901; A9270-GY; J0290; J0595; J2001; J2550; J2590; J3010; J7120; U0002

== ENCOUNTER 2021-09-20 12:06 | Emergency (ER) | payer BC, MEDICAID ==
[2021-09-20] MEDS ORDERED: Ondansetron 4 MG/2 ML SDV IVPUSH ONE (12:37)
[2021-09-20] MEDS ORDERED: Sodium Chloride 0.9% 1,000 ML IV ONE (12:37)
[2021-09-20] MEDS ORDERED: Morphine 4 MG/ML VIAL IVPUSH ONE ×2 (12:38→13:26)
[2021-09-20 13:01] LABS: BLOOD UREA NITROGEN,BUN 7 mg/dL (7.0-18.0); CARBON DIOXIDE,CO2 20.5 mmol/L (21.0-32.0); CHLORIDE,CL 102 mmol/L (98-107); ESTIMATED GFR > 60.0 ml/min; GLUCOSE RANDOM 126 mg/dL (74-106); LIPASE 70 U/L (73-393); POTASSIUM,K 3.6 mmol/L (3.5-5.1); SODIUM,NA 136 mmol/L (136-145)
== END 2021-09-20 15:15 | disposition home or self-care (01) ==
LOC: MW.ED 12:06
DX: O99.891 Other specified diseases and conditions complicating pregnancy (principal); N20.1 Calculus of ureter; Z3A.14 14 weeks gestation of pregnancy
CPT/HCPCS: 36415; 76775; 80053; 81001; 83690; 85025; 96374; 96375; 96376; 99284; J2270; J2405; J7030

== ENCOUNTER 2022-03-21 01:13 | Inpatient (IN) | payer BC ==
[2022-03-21] MEDS: Lactated Ringers 1,000 ML IV SCH ×2 (01:35→03:23)
[2022-03-21] MEDS ORDERED: Misoprostol 200 MCG Tab PO PRN (01:38)
[2022-03-21] MEDS ORDERED: Sodium Chloride 0.9% 2.5 ML Syringe FLUSH PRN (01:38)
[2022-03-21] MEDS ORDERED: Tranexamic Acid 1,000 MG in Sodium Chloride 0.9% 100 ML IV PRN (01:38)
[2022-03-21] MEDS ORDERED: Lidocaine 1% 50 ML MDV INJECT PRN (01:38)
[2022-03-21] MEDS ORDERED: Butorphanol 1 MG/ML SDV IVPUSH PRN (01:38)
[2022-03-21] MEDS ORDERED: Water For Irrigation,Sterile 1,000 ML Container IRR PRN (01:38)
[2022-03-21] MEDS ORDERED: Methylergonovine 0.2 MG/1 ML Amp IM PRN (01:38)
[2022-03-21] MEDS ORDERED: Carboprost Tromethamine 250 MCG/1 ML Amp IM PRN (01:38)
[2022-03-21] MEDS ORDERED: Ondansetron 4 MG/2 ML SDV IVPUSH PRN (01:38)
[2022-03-21] MEDS ORDERED: Sodium Chloride 0.9% 10 ML Syringe FLUSH PRN (01:38)
[2022-03-21] MEDS ORDERED: Sodium Chloride 0.9% 20 ML SDV IV PRN (01:38)
[2022-03-21] MEDS ORDERED: Oxytocin/0.9 % Sodium Chloride 30 UNIT/500 ML BAG IV SCH (01:45)
[2022-03-21] MEDS ORDERED: Acetaminophen 500 MG Tab PO PRN (01:51)
[2022-03-21] MEDS ORDERED: Witch Hazel Medicated Pads 40/Jar TOP PRN (01:51)
[2022-03-21] MEDS ORDERED: oxyCODONE 5 MG Tab PO PRN (01:51)
[2022-03-21] MEDS ORDERED: Benzocaine/Menthol 20%-0.5% Spray 78 GM Cannister TOP PRN (01:51)
[2022-03-21] MEDS ORDERED: Ibuprofen 400 MG Tab PO PRN (01:51)
[2022-03-21] MEDS ORDERED: Bisacodyl 10 MG Supp RECTAL PRN (01:51)
[2022-03-21] MEDS ORDERED: Ropivacaine/PF 400 MG/200 ML PCA ONE (02:35)
[2022-03-21] MEDS ORDERED: ePHEDrine 50 MG/ML SDV IVPUSH PRN (02:51)
[2022-03-21] MEDS ORDERED: Phenylephrine HCl In 0.9% NaCl 1 MG/10 ML Vial IVPUSH SCH (03:00)
[2022-03-21] MEDS ORDERED: Ropivacaine HCl/PF 400 MG in Premix Bag 1 BAG EPIDUR SCH (03:00)
[2022-03-21] MEDS ORDERED: Ropivacaine 0.5% 5 MG/ML 30 ML SDV ONE (03:04)
[2022-03-21] MEDS: Ibuprofen 800 MG Tab PO PRN ×2 (05:59→22:49)
[2022-03-21] MEDS: Lanolin 100% Cream 7 GM Tube TOP PRN (06:01)
[2022-03-21] MEDS: Acetaminophen 500 MG Tab PO PRN (16:20)
[2022-03-21] MEDS: Docusate Sodium 100 MG Cap PO PRN (22:49)
[2022-03-22] MEDS: Lanolin 100% Cream 7 GM Tube TOP PRN (08:22)
[2022-03-22] MEDS: Acetaminophen 500 MG Tab PO PRN (08:23)
[2022-03-22] MEDS: Docusate Sodium 100 MG Cap PO PRN (08:24)
== END 2022-03-22 17:55 | disposition home or self-care (01) | DRG 560 ==
LOC: MW.OBCHECK 01:13 → MW.OB 01:14 → MW.OBCHECK 01:52 → OBSVTOIN 04:04 → MW.OB 09:15
PROVIDERS: ADMIT Obstetrics & Gynecology; ATTEND Obstetrics & Gynecology
PROC: 10D07Z6 Extraction of Products of Conception, Vacuum, Via Natural or Artificial Opening (ICD-10-PCS; principal; 2022-03-21)
PROC: 10907ZC Drainage of Amniotic Fluid, Therapeutic from Products of Conception, Via Natural or Artificial Opening (ICD-10-PCS; 2022-03-21)
PROC: 0HQ9XZZ Repair Perineum Skin, External Approach (ICD-10-PCS; 2022-03-21)
PROC: 3E0R3BZ Introduction of Anesthetic Agent into Spinal Canal, Percutaneous Approach (ICD-10-PCS; 2022-03-21)
PROC: 00HU33Z Insertion of Infusion Device into Spinal Canal, Percutaneous Approach (ICD-10-PCS; 2022-03-21)
DX: O99.344 Other mental disorders complicating childbirth (principal); Z37.0 Single live birth; F41.9 Anxiety disorder, unspecified; F32.A Depression, unspecified; O70.0 First degree perineal laceration during delivery; Z3A.39 39 weeks gestation of pregnancy
CPT/HCPCS: 36415; 85014; 85018; 85027; 86592; 86850; 86900; 86901; A9270-GY; J2590; J2795; J7120; U0002

== ENCOUNTER 2024-07-14 05:58 | Emergency (ER) | payer BC ==
[2024-07-14] MEDS: Sodium Chloride 0.9% 1,000 ML IV ONE (06:24)
[2024-07-14 06:26] LABS: BASOPHILS ABSOLUTE AUTO 0.03 K/uL (0.00-0.20); BASOPHILS PERCENT AUTO 0.2 % (0.0-1.0); EOSINOPHILS ABSOLUTE AUTO 0.01 K/uL (0.00-0.45); EOSINOPHILS PERCENT AUTO 0.1 % (0.0-6.0); HEMATOCRIT 34.6 % (37.0-47.0); HEMOGLOBIN 12.1 g/dL (12.0-16.0); IMMATURE GRAN ABSOLUTE AUTO 0.11 K/uL (0.00-0.05); IMMATURE GRAN PERCENT AUTO 0.9 % (0.0-0.4); LYMPHOCYTES ABSOLUTE AUTO 1.55 K/uL (1.00-4.80); LYMPHOCYTES PERCENT AUTO 12.5 % (24.0-44.0); MEAN CORPUSCULAR HEMOGLOBIN 31.4 pg (28.0-32.0); MEAN CORPUSCULAR VOLUME 89.9 fL (83.0-99.0); MEAN PLATELET VOLUME 10.7 fL (9.4-12.3); MONOCYTES PERCENT AUTO 3.2 % (0.0-8.0); NEUTROPHILS ABSOLUTE AUTO 10.28 K/uL (1.80-7.70); NEUTROPHILS PERCENT AUTO 83.1 % (41.0-71.0); PLATELET COUNT,PLT 214 K/uL (150-400); RED BLOOD CELL COUNT 3.85 M/uL (4.10-5.30); WHITE BLOOD CELL COUNT,WBC 12.38 K/uL (3.9-11.3)
[2024-07-14 06:27] LABS: APPEARANCE,URINE SLT CLOUDY; BILIRUBIN,URINE NEGATIVE (NEGATIVE); COLOR,URINE YELLOW; GLUCOSE,URINE NEGATIVE (NEGATIVE); KETONES,URINE TRACE mg/dL (NEGATIVE); LEUKOCYTE ESTERASE,URINE TRACE (NEGATIVE); NITRITE,URINE NEGATIVE (NEGATIVE); OCCULT BLOOD,URINE LARGE (NEGATIVE); PROTEIN,URINE NEGATIVE (NEGATIVE); UROBILINOGEN,URINE 0.2 EU/dL (<2.0)
[2024-07-14 06:33] LABS: CARBON DIOXIDE,CO2 20.1 mmol/L (21.0-32.0); CREATININE 0.8 mg/dL (0.6-1.0); EST CRCL DRUG DOSING (CG) 102.39 mL/min; POTASSIUM,K 3.6 mmol/L (3.5-5.1)
[2024-07-14 06:36] LABS: BACTERIA,URINE 1+ (NEGATIVE); EPITHELIAL CELLS,URINE MODERATE (NONE-FEW); MUCUS,URINE MODERATE (NONE-MOD); RBC,URINE 25-30 (0-2/HPF)
[2024-07-14] MEDS: Morphine 2 MG/ML SYRINGE IVPUSH ONE (07:24)
[2024-07-14] MEDS: cefTRIAXone 2 GM in Sodium Chloride 0.9% 50 ML IV ONE (10:25)
== END 2024-07-14 13:13 | disposition home or self-care (01) ==
LOC: MW.ED 05:58
DX: O99.891 Other specified diseases and conditions complicating pregnancy (principal); N13.2 Hydronephrosis with renal and ureteral calculous obstruction; O23.42 Unspecified infection of urinary tract in pregnancy, second trimester; N39.0 Urinary tract infection, site not specified; Z75.8 Other problems related to medical facilities and other health care; Z3A.24 24 weeks gestation of pregnancy
CPT/HCPCS: 36415; 76770; 76857; 80048; 81001; 85025; 87086; 96361; 96365; 96375; 99284; J0696; J2270; J3490; J7030